=== PATIENT | male | born 1995 | race Two or more races ===

== ENCOUNTER 2019-09-03 19:43 | Emergency (ER) | payer SELFPAY ==
[~2019-09-03] VITALS: Ht 167.6 cm; Wt 65.0 kg
[2019-09-03 20:09] VITALS: BP 145/89
[2019-09-03] MEDS ORDERED: SODIUM CHLORIDE 0.9% 1,000 ML IV ONE (20:30)
[2019-09-03] MEDS ORDERED: LORAZEPAM 1MG TABLET PO ONE (20:45)
== END 2019-09-03 21:06 | disposition left against medical advice (07) ==
LOC: ER 19:43
DX: F15.10 Other stimulant abuse, uncomplicated (principal); F60.0 Paranoid personality disorder; R00.0 Tachycardia, unspecified
CPT/HCPCS: 99281; J7030

== ENCOUNTER 2019-09-17 12:15 | Emergency (ER) | payer MEDICAID ==
[~2019-09-17] VITALS: Ht 167.6 cm; Wt 76.0 kg
[2019-09-17] MEDS ORDERED: SODIUM CHLORIDE 0.9% 1,000 ML IV ONE (12:39)
[2019-09-17] MEDS ORDERED: LORAZEPAM 2MG/ML CPJ IV ONE (12:45)
[2019-09-17 13:02] LABS: BASOPHILS % 0.7 % (0.0-2.0); EOSINOPHILS % 0.2 % (0.0-5.0); HEMOGLOBIN. 14.5 g/dL (14.0-18.0); LYMPHOCYTES % 29.4 % (20.0-50.0); MEAN CORPUSCULAR HEMOGLOBIN 30.2 pg (28.0-32.0); MEAN CORPUSCULAR VOLUME 87.7 fL (80.0-94.0); MEAN PLATELET VOLUME 8.1 fl (7.4-10.4); MONOCYTES % 10.4 % (2.0-8.0); NEUTROPHILS % 59.3 % (40.0-76.0); PLATELET 268 x1000/uL (130-400); RED BLOOD CELL COUNT 4.78 mill/uL (4.7-6.1); RED CELL DISTRIBUTION WIDTH 14.2 % (11.6-14.6)
[2019-09-17 13:11] LABS: CHLORIDE 103 mEq/L (98-107)
[2019-09-17 13:18] LABS: ETHANOL BLOOD < 10 mg/dL
[2019-09-17 14:20] LABS: *AMPHETAMINES SCREEN URINE PRESUMTIVE POSITIVE (NEGATIVE); *BARBITURATES SCREEN URINE NEGATIVE (NEGATIVE); *BENZODIAZEPINES SCREEN URINE NEGATIVE (NEGATIVE); *COCAINE SCREEN URINE NEGATIVE (NEGATIVE)
[2019-09-17 14:21] LABS: CANNABINOID URINE SCREEN PRESUMTIVE POSITIVE (NEGATIVE); METHADONE URINE SCREEN NEGATIVE (NEGATIVE); OPIATES URINE SCREEN NEGATIVE (NEGATIVE); PHENCYCLIDINE URINE SCREEN NEGATIVE (NEGATIVE)
[2019-09-17 14:48] VITALS: BP 142/88
== END 2019-09-17 15:01 | disposition home or self-care (01) ==
LOC: ER 12:48
DX: T43.625A Adverse effect of amphetamines, initial encounter (principal); R00.2 Palpitations; Y92.89 Other specified places as the place of occurrence of the external cause
CPT/HCPCS: 36415; 71045; 80053; 80305; 80307; 80320; 80329; 85025; 93005; 96374; 99285; J2060; J7030; G0480

== ENCOUNTER 2019-11-13 20:20 | Emergency (ER) | payer SELFPAY ==
[~2019-11-13] VITALS: Ht 167.6 cm; Wt 73.0 kg
[2019-11-13 22:59] LABS: CLARITY URINE CLEAR (CLEAR); COLOR URINE YELLOW (YELLOW); KETONES URINE NEGATIVE (NEGATIVE); LEUKOCYTE ESTERASE URINE 1+ (NEGATIVE); NITRITE URINE NEGATIVE (NEGATIVE); OCCULT BLOOD URINE NEGATIVE (NEGATIVE); PROTEIN URINE NEGATIVE (NEGATIVE); SPECIFIC GRAVITY URINE 1.023 (1.005-1.030)
[2019-11-14] VITALS: BP 135/87
[2019-11-14] MEDS ORDERED: AZITHROMYCIN 500 MG TABLET PO ONE (00:45)
[2019-11-14] MEDS ORDERED: CEFTRIAXONE SODIUM 250 MG/VIAL IM ONE (00:45)
[2019-11-16 04:09] LABS: NEISSERIA GONORRHOEAE NAA Negative (Negative)
== END 2019-11-14 01:26 | disposition home or self-care (01) ==
LOC: ER 20:20
DX: K92.1 Melena (principal); A64 Unspecified sexually transmitted disease
CPT/HCPCS: 81003; 87086; 87491; 87591; 96372; 99283; J0696